=== PATIENT | female | born 2000 | race Caucasian/White ===

== ENCOUNTER 2021-11-12 15:05 | Emergency (ER) | payer OTHER ==
[2021-11-13] MEDS ORDERED: Ketorolac Tromethamine 30 MG/ML VIAL ONE (17:33)
== END 2021-11-14 16:44 | disposition home or self-care (01) ==
LOC: ERS 15:05
DX: H72.92 Unspecified perforation of tympanic membrane, left ear (principal); H66.92 Otitis media, unspecified, left ear
CPT/HCPCS: 99282; J1885

== ENCOUNTER 2021-11-13 16:02 | Emergency (ER) | payer OTHER | END 2021-11-13 17:34 | disposition home or self-care (01) | LOC: ERS 16:02 | DX: H72.92 Unspecified perforation of tympanic membrane, left ear (principal) | CPT/HCPCS: 96372; 99282 ==

== ENCOUNTER 2021-11-18 20:46 | Emergency (ER) | payer OTHER | END 2021-11-18 22:50 | disposition home or self-care (01) | LOC: ERS 20:46 | DX: J30.9 Allergic rhinitis, unspecified (principal); H60.93 Unspecified otitis externa, bilateral | CPT/HCPCS: 99283 ==